=== PATIENT | female | born 1940 | race Hispanic/Latino ===

== ENCOUNTER 2017-12-03 20:05 | Emergency (ER) | payer MEDICARE, OTHER ==
[~2017-12-03] VITALS: Ht 160 cm; Wt 72.6 kg
--- OUTSIDE RECORDS SUMMARY | 2017-12-03 20:07 | XMS REPORT | Clinical Summary ---
Author Author [facility] Organization [facility] Address Unknown Phone Unavailable Care Team Providers Care Residential Instructor Name Role Phone Nikia Rizzo MD PCP Allergies Active Allergy Reactions Severity Noted Date Comments Nsaids (Non-Steroidal Anti-Inflammatory Drug) Current Medications Prescription Sig. Disp. Refills Start End Date Status Date sucralfate (CARAFATE) 1 Take 1 tablet 4 times a Active gram tablet day by oral route. ferrous sulfate 325 (65 ferrous sulfate Active FE) MG tablet NOVOLOG FLEXPEN 100 INJ 20 UNITS SC TID 1 07/05/20 Active unit/mL insulin pen 17 clopidogrel (PLAVIX) 75 clopidogrel 75 mg tablet Active mg tablet metFORMIN (GLUCOPHAGE) Take 1 tablet twice a day Active 850 mg tablet by oral route. losartan (COZAAR) 100 MG Take 100 mg by mouth Active tablet daily. omeprazole (PriLOSEC) 20 Take 20 mg by mouth Active MG capsule daily. atorvastatin (LIPITOR) 20 Take 20 mg by mouth Active MG tablet daily. Default OP ins amLODIPine (NORVASC) 5 mg Take 5 mg by mouth daily. Active tablet glimepiride (AMARYL) 4 MG Take 4 mg by mouth daily Active tablet before breakfast. linagliptin (TRADJENTA) 5 Take 5 mg by mouth daily Active mg tablet with breakfast. gabapentin (NEURONTIN) 1 po hs x 3 nights, then 30 capsule 0 11/14/19 Active 100 mg capsule 1 po bid 18 gabapentin (NEURONTIN) gabapentin 100 mg capsule 11/14/19 Discontin 100 mg capsule 18 ued Active Problems Problem Noted Date Lumbar spondylosis 11/14/2017 Spinal stenosis of lumbar region with neurogenic claudication 11/14/2017 Left leg pain 07/23/2017 Primary osteoarthritis of left knee 07/23/2017 Chronic pain of left knee 07/23/2017 Encounters Date Type Specialty Care Team Description 11/14/2017 Office Visit Orthopedic Surgery Milton Casey MD Spinal stenosis of lumbar region with neurogenic claudication (Primary Dx); Lumbar spondylosis 07/26/2017 Hospital Radiology Milton Casey MD Left leg pain Encounter 07/23/2017 Office Visit Orthopedic Surgery Milton Casey MD Chronic pain of left knee (Primary Dx); Left leg pain; Primary osteoarthritis of left knee 07/23/2017 Procedure Pass Radiology after 12/02/2016 Family History Medical History Relation Name Comments Heart disease Brother Stroke Brother Heart disease Father Stroke Father Heart disease Sister Stroke Sister Relation Name Status Comments Brother Alive Father Mother Sister Alive Social History Tobacco Use Types Packs/Day Years Used Date Never Smoker Alcohol Use Drinks/Week oz/Week Comments No Sex Assigned at Date Recorded Not on file Last Filed Vital Signs Vital Sign Reading Time Taken Blood Pressure 133/69 07/23/2017 1:51 PM CDT Pulse - - Temperature - - Respiratory Rate - - Oxygen Saturation - - Inhaled Oxygen - - Concentration Weight 72.6 kg (160 lb) 11/14/2017 3:08 PM SCHEDULING AGENT Height 160 cm (5' 3") 11/14/2017 3:08 PM SCHEDULING AGENT Body Mass Index 28.34 11/14/2017 3:08 PM SCHEDULING AGENT Plan of Treatment Health Maintenance Due Date Last Done Comments COLONOSCOPY 1992 MAMMOGRAM 1992 ZOSTER VACCINE 2002 PNEUMOCOCCAL 2007 POLYSACCHARIDE VACCINE AGE 65 AND OVER PNEUMOCOCCAL-13 2007 INFLUENZA VACCINE 04/23/2017 Procedures Procedure Name Priority Date/Time Associated Diagnosis Comments [place] ARTHROCENTESIS Routine 07/23/2017 Primary osteoarthritis of Results for this ASPIR&/INJ MAJOR JT/BURSA 2:56 PM CDT left knee procedure are in the W/O US results section. after 12/02/2016 Results * MRI Lumbar Spine Wo Contrast (07/26/2017 2:25 PM) Specimen Performing Laboratory [facility] [address] [place] [address] Narrative EXAMINATION: MRI LUMBAR SPINE WO CONTRAST CLINICAL HISTORY: M79.605 Pain in left leg, left leg pain COMPARISON:None TECHNIQUE: Multiplanar multisequence nonenhanced MRI examination was performed of the Lumbar spine. FINDINGS: For the purposes of this report, 5 lumbar type vertebral bodies are assumed and numbered according to the lumbosacral and vertebral morphology. Vertebral body heights are maintained without acute fracture.Right lateral subluxation of L1 on L2 measuring 5 mm, L2 on L3 measuring 9 mm. Left lateral occipital subluxation of L4 on L5 measuring 15 mm. Straightening of the normal lumbar lordosis. Moderate intervertebral disc space narrowing at L2-L3, on the right at L3-L4, and L4-L5 and on the left at L5-S1. Modic type II endplate changes at level through L4 and L4-L5. Fatty filum terminale. Axial images through the disc spaces demonstrate the following: L1-L2: Mild diffuse disc bulge without significant spinal canal stenosis. Patent bilateral foramina. L2-L3: Diffuse disc bulge and mild bilateral facet arthrosis contribute to mild spinal canal narrowing. Mild right neural foraminal narrowing. Patent left neural foramen. L3-L4: Diffuse posterior disc bulge and moderate right and mild left facet arthrosis contributing to mild spinal canal narrowing. Moderate right neural foraminal narrowing. Patent left neural foramen. L4-L5: Diffuse posterior disc bulge and moderate to marked facet arthrosis with focal left-sided ligamentum flavum thickening contributes to moderate to severe spinal canal stenosis with impingement on the descending bilateral L5 nerve roots, left greater than right. Facet arthrosis also contacts the exiting left L4 nerve root. Mild to moderate bilateral neural foraminal stenosis. L5-S1: Mild posterior disc bulge without significant spinal canal stenosis. Mild bilateral facet arthrosis. Moderate bilateral foraminal narrowing. Bilateral renal cystic lesions, partially evaluated. IMPRESSION: Multilevel degenerative changes of the lumbar spine, most pronounced at L4-L5 where diffuse posterior disc bulge and moderate to marked facet arthrosis contribute to moderate to marked spinal canal stenosis with mass effect on the descending bilateral nerve L5 roots, left greater than right. Additional degenerative changes are detailed above. [id number] Procedure Note Hm Interface, Radiology Results Incoming - 07/26/2017 3:21 PM CDT EXAMINATION: MRI LUMBAR SPINE WO CONTRAST CLINICAL HISTORY: M79.605 Pain in left leg, left leg pain COMPARISON: None TECHNIQUE: Multiplanar multisequence nonenhanced MRI examination was performed of the Lumbar spine. FINDINGS: For the purposes of this report, 5 lumbar type vertebral bodies are assumed and numbered according to the lumbosacral and vertebral morphology. Vertebral body heights are maintained without acute fracture. Right lateral subluxation of L1 on L2 measuring 5 mm, L2 on L3 measuring 9 mm. Left lateral occipital subluxation of L4 on L5 measuring 15 mm. Straightening of the normal lumbar lordosis. Moderate intervertebral disc space narrowing at L2-L3, on the right at L3-L4, and L4-L5 and on the left at L5-S1. Modic type II endplate changes at level through L4 and L4-L5. Fatty filum terminale. Axial images through the disc spaces demonstrate the following: L1-L2: Mild diffuse disc bulge without significant spinal canal stenosis. Patent bilateral foramina. L2-L3: Diffuse disc bulge and mild bilateral facet arthrosis contribute to mild spinal canal narrowing. Mild right neural foraminal narrowing. Patent left neural foramen. L3-L4: Diffuse posterior disc bulge and moderate right and mild left facet arthrosis contributing to mild spinal canal narrowing. Moderate right neural foraminal narrowing. Patent left neural foramen. L4-L5: Diffuse posterior disc bulge and moderate to marked facet arthrosis with focal left-sided ligamentum flavum thickening contributes to moderate to severe spinal canal stenosis with impingement on the descending bilateral L5 nerve roots, left greater than right. Facet arthrosis also contacts the exiting left L4 nerve root. Mild to moderate bilateral neural foraminal stenosis. L5-S1: Mild posterior disc bulge without significant spinal canal stenosis. Mild bilateral facet arthrosis. Moderate bilateral foraminal narrowing. Bilateral renal cystic lesions, partially evaluated. IMPRESSION: Multilevel degenerative changes of the lumbar spine, most pronounced at L4-L5 where diffuse posterior disc bulge and moderate to marked facet arthrosis contribute to moderate to marked spinal canal stenosis with mass effect on the descending bilateral nerve L5 roots, left greater than right. Additional degenerative changes are detailed above. [id number] * Large Joint Arthrocentesis (07/23/2017 2:56 PM) Jaylen Casey MD 07/23/20172:56 PM Large Joint Arthrocentesis Consent given by: patient Site marked: site marked Supporting Documentation Indications: pain and joint swelling Procedure Details Preparation: Patient was prepped and draped in the usual sterile fashion Ultrasound guided: no Platelet Rich Plasma Used: no PRP UsedLocation: knee - L knee Left side: Needle size: 22 G Approach: anteromedial Left knee medications administered: 6 mg betamethasone acetate & sodium phosphate 6 mg/mL; 2 mL bupivacaine 0.5 % (5 mg/mL); 1 mL lidocaine 10 mg/mL (1 %) Patient tolerance: patient tolerated the procedure well with no immediate complications * XR Knee 3 Vw Left (07/23/2017 2:03 PM) Specimen Performing Laboratory [facility] [place] [address] Narrative X-ray of the left knee in 3 views today reveal satisfactory overall alignment. There is some mild narrowing of the medial compartment with small osteophytes. No soft tissue calcifications are seen. On the patella, there is some mild medial compartment arthritis. after 12/02/2016 Insurance Payer Benefit Subscriber ID Type Phone Address Plan / Group MEDICARE MEDICARE xxxxxxxxxx Medicare [place] MEDICAID MEDICAID xxxxxxxxx Medicaid
[2017-12-03] MEDS ORDERED: AMLODIPINE BESY10 MG PO (20:22)
[2017-12-03] MEDS ORDERED: CLOPIDOGREL75 MG PO (20:22)
[2017-12-03] MEDS ORDERED: GABAPENTIN100 MG (20:22)
[2017-12-03] MEDS ORDERED: METFORMIN HCL500 MG PO (20:22)
[2017-12-03] MEDS ORDERED: OMEPRAZOLE40 MG (20:22)
[2017-12-03] MEDS ORDERED: ATORVASTATIN CA20 MG PO (20:22)
[2017-12-03] MEDS ORDERED: TRADJENTA5 MG (20:22)
[2017-12-03] MEDS ORDERED: LOSARTAN POTASS25 MG (20:22)
[2017-12-03] MEDS ORDERED: GLIMEPIRIDE2 MG PO (20:22)
[2017-12-03] MEDS ORDERED: MORPHINE SULFATE 5 MG/ML VIAL IM ONE (20:30)
[2017-12-03] MEDS ORDERED: ONDANSETRON HCL 4 MG ORAL DISINTEGRATING TAB PO ONE (20:30)
[2017-12-03 20:51] VITALS: BP 147/72
== END 2017-12-03 20:53 | disposition home or self-care (01) ==
LOC: FSED 20:05
DX: R10.11 Right upper quadrant pain (principal); S39.011A Strain of muscle, fascia and tendon of abdomen, initial encounter; D50.9 Iron deficiency anemia, unspecified
CPT/HCPCS: 96372; 99283; J2270

== ENCOUNTER 2021-03-10 04:05 | Inpatient (IN) | payer MEDICARE, OTHER ==
[~2021-03-10] VITALS: Ht 172.7 cm; Wt 70.8 kg
[~2021-03-10 04:05] MED LIST: AMLODIPINE BESY10 MG PO; ATORVASTATIN CA20 MG PO; CLOPIDOGREL75 MG PO; GABAPENTIN100 MG; GLIMEPIRIDE2 MG PO; LOSARTAN POTASS25 MG; METFORMIN HCL500 MG PO; OMEPRAZOLE40 MG; TRADJENTA5 MG
[2021-03-10] MEDS ORDERED: ONDANSETRON HCL INJ 2MG/ML 2ML 2 MG/ML VIAL IV PRN (05:15)
[2021-03-10] MEDS ORDERED: MORPHINE SULFATE INJ 4 MG/ML INJ 1ML IV PRN (05:15)
[2021-03-10 08:00] VITALS: BP 137/63
[2021-03-10] MEDS ORDERED: IOPAMIDOL 370 MG/ML 200 ML INFUS..BTL INJ ONE (08:39)
[2021-03-10] MEDS ORDERED: SODIUM CHLORIDE 0.9% 50ML 50 ML ONE (08:39)
[2021-03-10 08:44] VITALS: BP 137/63
[2021-03-10] MEDS ORDERED: DEXTROSE 50% SYRINGE 50 ML IV PRN (10:30)
[2021-03-10 11:03] LABS: CREATINE KINASE 71 IU/L (29-168)
[2021-03-10] MEDS ORDERED: INSULIN LISPRO 100 UNIT/1 ML 3ML VIAL SQ SCH ×2 (11:30)
[2021-03-10] MEDS: AMLODIPINE BESYLATE 10 MG TAB PO SCH (11:30)
[2021-03-10 12:12] VITALS: BP 152/71
[2021-03-10 14:44] LABS: CREATINE KINASE 74 IU/L (29-168)
[2021-03-10 15:25] LABS: FREE T4 (FREE THYROXINE) 1.01 ng/dL (0.8-1.8); THYROID STIMULATING HORMONE 2.051 uIU/mL (0.350-4.940)
[2021-03-10] MEDS: INSULIN LISPRO 100 UNIT/1 ML 3ML VIAL SQ SCH ×3 (16:30→21:00)
[2021-03-10 16:44] VITALS: BP 145/66
[2021-03-10 20:25] VITALS: BP 145/66
[2021-03-10 20:42] LABS: CREATINE KINASE 63 IU/L (29-168)
[2021-03-10 20:49] VITALS: BP 141/62
[2021-03-10] MEDS: INSULIN GLARGINE 100 UNITS/ML VIAL SQ SCH (21:00)
[2021-03-10] MEDS ORDERED: ATORVASTATIN 20 MG TAB PO SCH (21:00)
[2021-03-11] VITALS (8 sets, daily range): BP systolic 120–164; BP diastolic 52–102
[2021-03-11] MEDS: PANTOPRAZOLE SOD 40 MG TABEC PO SCH (05:32)
[2021-03-11 07:00] LABS: THYROID STIMULATING HORMONE 1.969 uIU/mL (0.350-4.940)
[2021-03-11 07:26] LABS: BASOPHILS % 0.2 % (0.0-1.0); EOSINOPHILS # (AUTO) 0.1 (0.0-0.4); EOSINOPHILS % 2.7 % (0.0-6.0); HEMATOCRIT 29.6 % (34.2-44.1); HEMOGLOBIN 9.6 g/dL (12.0-16.0); LYMPHOCYTES # (AUTO) 1.1 (1.0-3.2); LYMPHOCYTES % 22.7 % (18.0-39.1); MEAN CORPUSCULAR HEMOGLOBIN 28.7 pg (28-32); MEAN CORPUSCULAR HGB CONC 32.4 g/dL (31-35); MEAN CORPUSCULAR VOLUME 88.6 fL (81-99); MONOCYTES # (AUTO) 0.4 (0.2-0.8); MONOCYTES % 8.9 % (4.4-11.3); NEUTROPHILS # (AUTO) 3.2 (2.1-6.9); NEUTROPHILS % 65.3 % (38.7-80.0); PLATELET COUNT 148 x10e3/uL (140-360); RED BLOOD COUNT 3.34 x10e6/uL (3.6-5.1); RED CELL DISTRIBUTION WIDTH 13.2 % (11.7-14.4)
[2021-03-11 07:38] LABS: ALANINE AMINOTRANSFERASE 29 IU/L (0-55); ALBUMIN 3.1 g/dL (3.5-5.0); ALKALINE PHOSPHATASE 165 IU/L (40-150); ANION GAP 11.8 mmol/L (8-16); BLOOD UREA NITROGEN 12 mg/dL (7-26); BUN/CREATININE RATIO 16 (6-25); CALCIUM 8.8 mg/dL (8.4-10.2); CARBON DIOXIDE 24 mmol/L (22-29); CHLORIDE 106 mmol/L (98-107); CREATININE, SERUM 0.75 mg/dL (0.57-1.11); EST GLOMERULAR FILTRATION RATE > 60 ML/MIN (60-); GLUCOSE 190 mg/dL (74-118); POTASSIUM 3.8 mmol/L (3.5-5.1); SODIUM 138 mmol/L (136-145)
[2021-03-11] MEDS: INSULIN LISPRO 100 UNIT/1 ML 3ML VIAL SQ SCH ×7 (08:05→20:12)
[2021-03-11] MEDS ORDERED: SODIUM CHLORIDE 0.9% 50ML 50 ML ONE (11:44)
[2021-03-11] MEDS ORDERED: IOPAMIDOL 370 MG/ML 200 ML INFUS..BTL INJ ONE (11:44)
[2021-03-11] MEDS: AMLODIPINE BESYLATE 10 MG TAB PO SCH (12:28)
[2021-03-11] MEDS: IRON SUCROSE 100 MG in SODIUM CHLORIDE 0.9% 100 ML 100 ML IV SCH (13:00)
[2021-03-11] MEDS: INSULIN GLARGINE 100 UNITS/ML VIAL SQ SCH (20:12)
[2021-03-12] MEDS: PANTOPRAZOLE SOD 40 MG TABEC PO SCH (05:14)
[2021-03-12 06:17] LABS: BASOPHILS % 0.4 % (0.0-1.0); EOSINOPHILS # (AUTO) 0.1 (0.0-0.4); HEMATOCRIT 30.8 % (34.2-44.1); HEMOGLOBIN 9.6 g/dL (12.0-16.0); LYMPHOCYTES # (AUTO) 1.2 (1.0-3.2); LYMPHOCYTES % 24.4 % (18.0-39.1); MEAN CORPUSCULAR HEMOGLOBIN 27.7 pg (28-32); MEAN CORPUSCULAR HGB CONC 31.2 g/dL (31-35); MEAN CORPUSCULAR VOLUME 88.8 fL (81-99); MONOCYTES # (AUTO) 0.5 (0.2-0.8); MONOCYTES % 10.4 % (4.4-11.3); NEUTROPHILS # (AUTO) 3.2 (2.1-6.9); NEUTROPHILS % 62.6 % (38.7-80.0); PLATELET COUNT 161 x10e3/uL (140-360); RED BLOOD COUNT 3.47 x10e6/uL (3.6-5.1); RED CELL DISTRIBUTION WIDTH 13.2 % (11.7-14.4)
[2021-03-12] MEDS: AMLODIPINE BESYLATE 10 MG TAB PO SCH (09:07)
[2021-03-12] MEDS: INSULIN LISPRO 100 UNIT/1 ML 3ML VIAL SQ SCH ×4 (09:14→11:51)
[2021-03-12] MEDS: IRON SUCROSE 100 MG in SODIUM CHLORIDE 0.9% 100 ML 100 ML IV SCH (12:00)
[2021-03-12 12:47] VITALS: BP 131/99
== END 2021-03-12 13:20 | disposition home or self-care (01) | DRG 313 ==
LOC: FSED 04:24 → ERHOLD 05:42 → MED/SURG3 07:53 → OBSVTOIN 10:23
PROVIDERS: ADMIT Internal Medicine; ATTEND Internal Medicine
DX: R07.89 Other chest pain (principal); K76.6 Portal hypertension; D64.9 Anemia, unspecified; I48.0 Paroxysmal atrial fibrillation; E11.65 Type 2 diabetes mellitus with hyperglycemia; I25.10 Atherosclerotic heart disease of native coronary artery without angina pectoris; K74.60 Unspecified cirrhosis of liver; K21.9 Gastro-esophageal reflux disease without esophagitis; I10 Essential (primary) hypertension; E66.01 Morbid (severe) obesity due to excess calories; Z95.5 Presence of coronary angioplasty implant and graft; K31.89 Other diseases of stomach and duodenum; E11.42 Type 2 diabetes mellitus with diabetic polyneuropathy; E78.5 Hyperlipidemia, unspecified; Z79.4 Long term (current) use of insulin; R10.13 Epigastric pain; K29.70 Gastritis, unspecified, without bleeding; K63.5 Polyp of colon; D50.9 Iron deficiency anemia, unspecified
CPT/HCPCS: 36415; 71260; 74177; 80053; 82550; 82553; 82607; 82746; 82948; 83036; 83540; 83880; 84439; 84443; 84466; 84484; 85025; 85379; 93005; 93306; 99284; J1756; J1815; Q9967; U0002

== ENCOUNTER 2023-01-09 20:27 | Emergency (ER) | payer MEDICARE, OTHER ==
[~2023-01-09] VITALS: Ht 172.7 cm; Wt 70.8 kg
[2023-01-09 21:12] LABS: BASOPHILS % 0.2 % (0.0-1.0); EOSINOPHILS # (AUTO) 0.1 (0.0-0.4); EOSINOPHILS % 2.4 % (0.0-6.0); HEMATOCRIT 23.6 % (34.2-44.1); LYMPHOCYTES # (AUTO) 1.1 (1.0-3.2); LYMPHOCYTES % 25.7 % (18.0-39.1); MEAN CORPUSCULAR HEMOGLOBIN 22.2 pg (28-32); MEAN CORPUSCULAR HGB CONC 29.7 g/dL (31-35); MEAN CORPUSCULAR VOLUME 74.7 fL (81-99); MONOCYTES # (AUTO) 0.5 (0.2-0.8); MONOCYTES % 11.1 % (4.4-11.3); NEUTROPHILS # (AUTO) 2.6 (2.1-6.9); NEUTROPHILS % 60.4 % (38.7-80.0); PLATELET COUNT 160 x10e3/uL (140-360); RED BLOOD COUNT 3.16 x10e6/uL (3.6-5.1)
[2023-01-09 21:23] LABS: INR 1.23
[2023-01-09 21:28] LABS: ALBUMIN 2.8 g/dL (3.5-5.0); ALBUMIN/GLOBULIN RATIO 0.7 (0.8-2.0); ANION GAP 11.7 mmol/L (8-16); CALCIUM 8.7 mg/dL (8.4-10.2); CREATININE, SERUM 1.14 mg/dL (0.57-1.11); POTASSIUM 3.7 mmol/L (3.5-5.1)
[2023-01-09 22:35] VITALS: BP 142/80
== END 2023-01-09 22:40 | disposition home or self-care (01) ==
LOC: ER 20:34
DX: R18.8 Other ascites (principal); K74.60 Unspecified cirrhosis of liver; I10 Essential (primary) hypertension; R94.31 Abnormal electrocardiogram [ECG] [EKG]
CPT/HCPCS: 36415; 80053; 85025; 85610; 93005; 99283